=== PATIENT | female | born 1945 | race Hispanic/Latino ===

== ENCOUNTER 2018-01-08 14:02 | Outpatient (CLI) | payer OTHER | END 2018-01-08 14:03 | disposition home or self-care (01) | LOC: BICMAMMO 14:02 | PROVIDERS: ATTEND Family Medicine | DX: Z12.31 Encounter for screening mammogram for malignant neoplasm of breast (principal); N63.20 Unspecified lump in the left breast, unspecified quadrant; Z80.3 Family history of malignant neoplasm of breast | CPT/HCPCS: 77067 ==

== ENCOUNTER 2018-02-02 21:56 | Inpatient (IN) | payer OTHER ==
[~2018-02-02 21:56] MED LIST: ISOVUE-370 76%-LOCM 1 ML ONE
[2018-02-02 23:03] LABS: #Basophils 0.1 thou/uL (0.0-0.2); #Eosinphils 0.2 thou/uL (0.0-0.7); #Lymphocytes 2.5 thou/uL (1.20-3.40); #Monocytes 0.7 thou/uL (0.11-0.59); #Neutrophils 5.6 thou/uL (1.40-6.50); %Basophils 0.8 % (0.0-1.0); %Eosinophils 2.4 % (0.0-10.0); %Lymphocytes 27.1 % (21.0-51.0); %Monocytes 7.8 % (0.0-10.0); Hemoglobin 13.2 g/dL (12.0-16.0); Mean Corpuscular HGB CONC 35.9 g/dL (32.0-36.0); Mean Corpuscular Hemoglobin 34.2 pg (27.0-31.0); Mean Corpuscular Volume 95.3 fl (81.0-99.0); Mean Platelet Volume 6.1 fL (7.4-10.4); Platelet Count 217 thou/uL (130-400); RBC Distribution Width 11.9 % (11.5-14.5); Red Blood Cell (RBC) Count 3.85 mill/uL (4.20-5.40); White Blood Cell (WBC) Count 9.1 thou/uL (4.8-10.8)
[2018-02-02 23:10] LABS: PTT 25.9 SEC (22.9-36.1); Prothrombin Time 13.5 SEC (12.0-14.7)
--- NOTE | 2018-02-02 23:10 | CT ---
CT BRAIN NONCONTRAST: DATE: 02/02/2018 TIME: 10:31 p.m. COMPARISON: 02/26/2016 HISTORY: A 72-year-old female with acute ataxia, headache, dysarthria, and left-sided weakness. Dr. Walden reported the findings, by telephone, to Dr. Osorio of the emergency department, at 10:40 p.m . on 02/02/2018. FINDINGS: There is a new finding of patchy, moderately low attenuation lesion, measuring somewhat greater than 1 cm, involving the right side of the dorothy, especially the upper dorothy. There is no acute intraaxial or extraaxial hemorrhage. There are moderate chronic ischemic white matter changes of the cerebrum. The ventricles are normal in size and configuration. No extraaxial fluid collections, mass effect, or midline shift. The calvarium is intact. IMPRESSION: 1. Evidence for acute or subacute infarction of the right side of the dorothy. 2. No acute intracranial hemorrhage or mass effect. 3. Moderate chronic ischemic white matter changes. CODE BRIANNA Mukherjee POS: ANA
[2018-02-02 23:24] LABS: ALT (SGPT) 13 U/L (8-55); AST (SGOT) 15 U/L (5-34); Alkaline Phosphatase 98 U/L (40-150); Anion Gap 12 mmol/L (10-20); BUN (Urea Nitrogen) 21 mg/dL (9.8-20.1); Bilirubin, Total 0.4 mg/dL (0.2-1.2); CK (CPK) 110 U/L (29-168); Calc. Creatinine Clearance 0 mL/min (70-130); Calcium 9.1 mg/dL (7.8-10.44); Carbon Dioxide 23 mmol/L (23-31); Chloride 107 mmol/L (98-107); Estimated GFR-MDRD Greater than 90; Glucose 104 mg/dL (80-115); Potassium 3.8 mmol/L (3.5-5.1); Sodium 138 mmol/L (136-145)
[2018-02-02 23:29] LABS: CKMB 2.8 ng/mL (0-6.6); Troponin I Less than 0.010 ng/mL (< 0.028)
--- NOTE | 2018-02-02 23:30 | CT ---
CT ANGIOGRAM NECK WITH CONTRAST: CT ANGIOGRAM HEAD WITH CONTRAST: DATE: 02/02/2018 TIME: 10:43 p.m. HISTORY: A 72-year-old female with acute stroke. Dysarthria. Dysequilibrium. Left upper extremity weakness. TECHNIQUE: Following an IV contrast bolus injection of Isovue, arterial bolus chasing technique scan was perform ed from the bottom of the aortic arch to the vertex of the skull. Coronal and sagittal 3D MIP reconstructions of the head and neck. FINDINGS: There is no evidence of thrombus involving the intracranial internal carotid arteries or the M1 segme nts of the bilateral middle cerebral arteries. No evidence of high grade stenosis or occlusion invol ving these vessels or of the proximal portions of the bilateral anterior cerebral arteries, intracran ial vertebral arteries, basilar artery, posterior cerebral arteries, or the proximal aspects of the b ilateral superior cerebellar arteries. No high grade stenosis identified involving the brachiocephal ic, left subclavian, bilateral common carotid, bilateral cervical internal carotid, or bilateral cerv ical vertebral arteries. The right vertebral artery is dominant. There is mild atherosclerotic plaq ue at the bilateral proximal internal carotid arteries at the carotid bulbs. There is moderately hea vy atherosclerotic calcification of the bilateral carotid siphons. IMPRESSION: 1. Mild atherosclerosis of the proximal bilateral internal carotid arteries. 2. Moderate atherosclerosis of the bilateral carotid siphons. 3. No evidence of high grade stenosis or occlusion of the major arteries of the neck or head. ADDENDUM: This stroke alert protocol CT angiogram report of the head and neck was given verbally to Dr. Osorio of the emergency department at 11:03 p.m. on 02/02/2018. CODE CR POS: ANA
[2018-02-03] MEDS ORDERED: Ondansetron HCl/PF 4 MG/2 ML Vial IVP PRN (00:18)
[2018-02-03] MEDS ORDERED: Dextrose 5% in Water 1,000 ML IV PRN (00:18)
[2018-02-03] MEDS ORDERED: Dextrose 50% Abboject 50 ML SYRINGE SLOW IVP PRN (00:18)
[2018-02-03] MEDS ORDERED: hydrALAZINE 20 MG/ML VIAL SLOW IVP PRN (00:22)
[2018-02-03] MEDS ORDERED: HumaLOG 300 UNITS/3 ML VIAL SC PRN (00:22)
[2018-02-03] MEDS ORDERED: Aspirin 325 MG TAB ONE (00:23)
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
[2018-02-03] MEDS ORDERED: Gabapentin 300 MG CAP PO PRN (00:48)
[2018-02-03 01:06] LABS: Bilirubin Negative (Negative); Blood, Urine Negative (Negative); Clarity CLEAR (Clear); Glucose, Urine (Dipstick) Negative (Negative); Leukocyte Negative (Negative); Nitrite Negative (Negative); Protein, Urine (Dipstick) Negative (Neg-Trace); Specific Gravity, Urine 1.015 (1.002-1.036); Urobilinogen 0.2 mg/dL (0.2-1.0)
[2018-02-03 02:24] VITALS: BMI 26.1
[2018-02-03] MEDS: Acetaminophen 325 MG TAB PO PRN ×2 (02:33→20:36)
[2018-02-03] MEDS: Sodium Chloride 0.9% 1,000 ML IV SCH ×3 (02:33→22:48)
[2018-02-03 02:34] LABS: Amphetamine Not Detected (NotDetected); Barbiturates Screen Not Detected (NotDetected); Benzodiazepine Screen Not Detected (NotDetected); Cocaine Metabolite Screen Not Detected (NotDetected); Medtox Control Line Valid? VALID (VALID); Medtox Reader # READER 1; Methadone Not Detected (NotDetected); Methamphetamine Not Detected (NotDetected); Opiate Screen Not Detected (NotDetected); Oxycodone Screen Not Detected (NotDetected); Phencyclidine (PCP) Not Detected (NotDetected); THC/Cannabinoid Screen Not Detected (NotDetected); Tricyclic Screen Not Detected (NotDetected)
[2018-02-03 05:21] LABS: #Eosinphils 0.3 thou/uL (0.0-0.7); #Lymphocytes 2.5 thou/uL (1.20-3.40); #Monocytes 0.7 thou/uL (0.11-0.59); #Neutrophils 4.6 thou/uL (1.40-6.50); %Basophils 0.5 % (0.0-1.0); %Eosinophils 3.3 % (0.0-10.0); %Lymphocytes 30.7 % (21.0-51.0); %Monocytes 8.3 % (0.0-10.0); %Neutrophils 57.2 % (42.0-75.0); Hemoglobin 12.2 g/dL (12.0-16.0); Mean Corpuscular HGB CONC 35.4 g/dL (32.0-36.0); Mean Corpuscular Hemoglobin 33.7 pg (27.0-31.0); Mean Corpuscular Volume 95.3 fl (81.0-99.0); Mean Platelet Volume 6.1 fL (7.4-10.4); Platelet Count 190 thou/uL (130-400); RBC Distribution Width 11.9 % (11.5-14.5); Red Blood Cell (RBC) Count 3.61 mill/uL (4.20-5.40)
[2018-02-03 05:38] LABS: Hemoglobin A1c 4.9 % (4.0-6.0)
[2018-02-03 05:40] LABS: Anion Gap 8 mmol/L (10-20); BUN (Urea Nitrogen) 19 mg/dL (9.8-20.1); Calc. Creatinine Clearance 84 mL/min (70-130); Calcium 8.8 mg/dL (7.8-10.44); Carbon Dioxide 28 mmol/L (23-31); Cardiac Risk 4.1 (Less than 4.5); Chloride 108 mmol/L (98-107); Cholesterol 195 mg/dl (< 200 Desired); Estimated GFR-MDRD Greater than 90; Glucose 111 mg/dL (80-115); HDL Cholesterol 47 mg/dL (>60 Neg Risk); LDL Cholesterol, Calculated 135 mg/dL; Potassium 3.6 mmol/L (3.5-5.1); Sodium 140 mmol/L (136-145); Triglycerides 64 mg/dL (Less than 150)
[2018-02-03] MEDS: Famotidine 20 MG TAB PO SCH ×2 (08:16→20:36)
[2018-02-03] MEDS: Enoxaparin Sodium 40 MG/0.4 ML SYRINGE SC SCH (08:16)
[2018-02-03] MEDS: metFORMIN 500 MG TAB PO SCH ×2 (08:16→17:41)
[2018-02-03] MEDS ORDERED: Aspirin 81 mg Enteric Coated Tablet PO SCH (09:00)
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
--- NOTE | 2018-02-03 10:38 | MRI ---
MRI BRAIN WITHOUT CONTRAST: DATE: 02/03/18. COMPARISON: None. HISTORY: Acute ataxia, left-sided weakness, headache, and dysarthria. TECHNIQUE: Multiplanar multisequence MR imaging of the brain obtained without contrast. FINDINGS: He diffusion weighted imaging demonstrates no evidence for acute infarction. The axial gradient echo imaging demonstrates no evidence for intracranial hemorrhage. Multiple foci of periventricular deep and subcortical white matter T2 and FLAIR hyperintensity noted, evidence of small-vessel disease, not significantly changed when compared to the 02/26/16 exam. Arterial flow voids at axial level of the skull base appear grossly unremarkable on the T2 weighted i maging. Regional bone marrow signal intensity appears grossly unremarkable. No midline shift or mas s effect. IMPRESSION: Chronic findings as described above. No evidence for intracranial hemorrhage or acute infarction. POS: ANA
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
[2018-02-03] MEDS ORDERED: Ibuprofen 800 MG TAB PO PRN (17:13)
[2018-02-03] MEDS ORDERED: Lisinopril 10 MG TAB PO SCH (19:15)
[2018-02-03] MEDS ORDERED: Atorvastatin Calcium 40 MG TAB PO SCH (21:00)
[2018-02-03] MEDS ORDERED: Ibuprofen 800 MG TAB PO SCH (21:00)
[2018-02-04 05:24] LABS: #Eosinphils 0.3 thou/uL (0.0-0.7); #Lymphocytes 1.8 thou/uL (1.20-3.40); #Monocytes 0.6 thou/uL (0.11-0.59); #Neutrophils 4.9 thou/uL (1.40-6.50); %Basophils 0.5 % (0.0-1.0); %Eosinophils 4.5 % (0.0-10.0); %Lymphocytes 23.6 % (21.0-51.0); %Monocytes 7.7 % (0.0-10.0); %Neutrophils 63.6 % (42.0-75.0); Hemoglobin 12.9 g/dL (12.0-16.0); Mean Corpuscular HGB CONC 35.3 g/dL (32.0-36.0); Mean Corpuscular Hemoglobin 33.4 pg (27.0-31.0); Mean Corpuscular Volume 94.5 fL (78.0-98.0); Mean Platelet Volume 6.3 fL (7.4-10.4); Platelet Count 220 thou/uL (130-400); RBC Distribution Width 11.9 % (11.5-14.5); Red Blood Cell (RBC) Count 3.87 mill/uL (4.20-5.40); White Blood Cell (WBC) Count 7.7 thou/uL (4.8-10.8)
[2018-02-04 05:54] LABS: Anion Gap 12 mmol/L (10-20); BUN (Urea Nitrogen) 21 mg/dL (9.8-20.1); Calc. Creatinine Clearance 79 mL/min (70-130); Calcium 9.2 mg/dL (7.8-10.44); Carbon Dioxide 24 mmol/L (23-31); Chloride 109 mmol/L (98-107); Estimated GFR-MDRD Greater than 90; Glucose 101 mg/dL (80-115); Potassium 3.8 mmol/L (3.5-5.1); Sodium 141 mmol/L (136-145)
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
[2018-02-04] MEDS: Acetaminophen 325 MG TAB PO PRN (08:15)
[2018-02-04] MEDS: Famotidine 20 MG TAB PO SCH (08:15)
[2018-02-04] MEDS: metFORMIN 500 MG TAB PO SCH (08:16)
[2018-02-04] MEDS: Sodium Chloride 0.9% 1,000 ML IV SCH (08:18)
[2018-02-04 08:21] VITALS: TEMP 97.5
[2018-02-04] MEDS ORDERED: Aspirin 81 mg Enteric Coated Tablet PO SCH (09:00)
[2018-02-04] MEDS ORDERED: Lisinopril 20 MG TAB PO SCH (09:00)
[2018-02-04 09:47] VITALS: BP 134/72
[2018-02-04] MEDS: Enoxaparin Sodium 40 MG/0.4 ML SYRINGE SC SCH (10:11)
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
== END 2018-02-04 11:25 | disposition home or self-care (01) | DRG 69 ==
LOC: ERS 21:56 → 2SE 02-03 00:11
PROVIDERS: ADMIT Family Medicine; ATTEND Family Medicine
DX: G45.9 Transient cerebral ischemic attack, unspecified (principal); G81.94 Hemiplegia, unspecified affecting left nondominant side; Z79.84 Long term (current) use of oral hypoglycemic drugs; I10 Essential (primary) hypertension; E78.5 Hyperlipidemia, unspecified; R07.81 Pleurodynia; Y08.89XA Assault by other specified means, initial encounter; R47.1 Dysarthria and anarthria; S00.03XA Contusion of scalp, initial encounter; R40.2412 Glasgow coma scale score 13-15, at arrival to emergency department; I16.0 Hypertensive urgency; E11.42 Type 2 diabetes mellitus with diabetic polyneuropathy; Z79.82 Long term (current) use of aspirin; W18.39XA Other fall on same level, initial encounter
CPT/HCPCS: 0042T; 36415; 36416; 70450; 70496; 70498; 70551; 71045; 72128; 80048; 80053; 80061; 80306; 81003; 82553; 83036; 84484; 85025; 85610; 85730; 93005; 93306; 96374; A4216; G8978-GP-CK; G8979-GP-CK; G8980-GP-CK; G8987-GO-CI; G8988-GO-CI; G8989-GO-CI; G8996-GN-CH; G8997-GN-CH; G8998-GN-CH; J1650; J2270

== ENCOUNTER 2018-03-09 13:02 | Outpatient (CLI) | payer OTHER | END 2018-03-09 13:03 | disposition home or self-care (01) | LOC: BICMAMMO 13:02 | PROVIDERS: ATTEND Student in an Organized Health Care Education/Training Program | DX: Z13.820 Encounter for screening for osteoporosis (principal); Z78.0 Asymptomatic menopausal state; M85.89 Other specified disorders of bone density and structure, multiple sites | CPT/HCPCS: 77080 ==

== ENCOUNTER 2019-06-06 12:06 | Emergency (ER) | payer OTHER ==
--- NOTE | 2019-06-06 13:11 | CT ---
CT BRAIN NONCONTRAST: Fall, acute. DATE: 06/06/2019 HISTORY: 73-year-old female with posttraumatic headache and dizziness after fall. FINDINGS: There is no evidence of acute intra-axial or extra-axial hemorrhage. There is no midline shift or any other mass effect. There is no extra-axial fluid collection. There is no evidence of obstructive hydrocephalus. Calvarium is intact. IMPRESSION: No acute intracranial findings.
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
[2019-06-06] MEDS ORDERED: Ketorolac Tromethamine 30 MG/ML VIAL ONE (13:36)
== END 2019-06-06 13:45 | disposition home or self-care (01) ==
LOC: ERS 12:06
DX: S01.01XA Laceration without foreign body of scalp, initial encounter (principal); E11.9 Type 2 diabetes mellitus without complications; E78.5 Hyperlipidemia, unspecified; I10 Essential (primary) hypertension; Z79.899 Other long term (current) drug therapy; Z79.84 Long term (current) use of oral hypoglycemic drugs; W18.30XA Fall on same level, unspecified, initial encounter
CPT/HCPCS: 36416; 70450; 72125; 96372; J1885

== ENCOUNTER 2021-02-06 13:26 | Emergency (ER) | payer OTHER ==
[2021-02-06] MEDS ORDERED: Dexamethasone 4 mg/ml Vial ONE (15:12)
[2021-02-06] MEDS ORDERED: diphenhydrAMINE 25 MG CAP ONE (15:12)
== END 2021-02-06 16:57 | disposition home or self-care (01) ==
LOC: ERS 13:26
DX: T78.3XXA Angioneurotic edema, initial encounter (principal); Z79.899 Other long term (current) drug therapy; Z79.84 Long term (current) use of oral hypoglycemic drugs; Z79.82 Long term (current) use of aspirin; E11.9 Type 2 diabetes mellitus without complications; E78.5 Hyperlipidemia, unspecified; I10 Essential (primary) hypertension
CPT/HCPCS: 99283; J1100; Q0163

== ENCOUNTER 2022-07-04 15:22 | Emergency (ER) | payer OTHER ==
[2022-07-04] MEDS ORDERED: Morphine 4 MG/ML VIAL ONE (16:55)
[2022-07-04] MEDS ORDERED: Ondansetron PF 4 MG/2 ML Vial ONE (16:55)
== END 2022-07-04 18:25 | disposition home or self-care (01) ==
LOC: ERS 15:22
DX: S09.90XA Unspecified injury of head, initial encounter (principal); M25.552 Pain in left hip; E11.9 Type 2 diabetes mellitus without complications; E78.5 Hyperlipidemia, unspecified; I10 Essential (primary) hypertension; Z79.899 Other long term (current) drug therapy; W01.10XA Fall on same level from slipping, tripping and stumbling with subsequent striking against unspecified object, initial encounter
CPT/HCPCS: 70450; 72125; 96374; 96375; J2270; J2405

== ENCOUNTER 2022-07-24 10:38 | Inpatient (IN) | payer OTHER ==
[2022-07-24 11:05] LABS: #Eosinphils 0.3 thou/uL (0.0-0.7); #Lymphocytes 1.8 thou/uL (1.20-3.40); #Monocytes 0.4 thou/uL (0.11-0.59); #Neutrophils 4.8 thou/uL (1.40-6.50); %Basophils 0.3 % (0.0-1.0); %Eosinophils 3.7 % (0.0-10.0); %Lymphocytes 24.3 % (21.0-51.0); %Monocytes 5.2 % (0.0-10.0); %Neutrophils 66.6 % (42.0-75.0); Hemoglobin 13.9 g/dL (12.0-16.0); Mean Corpuscular HGB CONC 33.2 g/dL (32.0-36.0); Mean Corpuscular Volume 96.6 fl (78.0-98.0); Mean Platelet Volume 6.8 fL (7.4-10.4); Platelet Count 241 10x3/uL (130-400); RBC Distribution Width 12.3 % (11.5-14.5); Red Blood Cell (RBC) Count 4.35 mill/uL (4.20-5.40); White Blood Cell (WBC) Count 7.2 10x3/uL (4.8-10.8)
[2022-07-24] MEDS ORDERED: Iopamidol-370 76% 500 ML 1 ML ONE (11:09)
[2022-07-24 11:19] LABS: PTT 26.5 sec (22.9-36.1); Prothrombin Time 13.5 sec (12.0-14.7)
[2022-07-24 11:23] LABS: ALT (SGPT) 12 U/L (8-55); AST (SGOT) 16 U/L (5-34); Albumin 4.2 g/dL (3.4-4.8); Alkaline Phosphatase 112 U/L (40-110); Anion Gap 14 mmol/L (10-20); BUN (Urea Nitrogen) 15 mg/dL (9.8-20.1); Bilirubin, Total 0.5 mg/dL (0.2-1.2); Calc. Creatinine Clearance 0 mL/min (70-130); Calcium 9.5 mg/dL (7.8-10.44); Carbon Dioxide 26 mmol/L (23-31); Chloride 104 mmol/L (98-107); Estimated GFR 85; Globulin 3.1 g/dL (2.4-3.5); Glucose 88 mg/dL (83-110); Potassium 3.2 mmol/L (3.5-5.1); Protein, Total 7.3 g/dL (5.8-8.1); Sodium 141 mmol/L (136-145)
[2022-07-24] MEDS ORDERED: Acetaminophen 500 MG TAB ONE (11:58)
[2022-07-24] MEDS ORDERED: hydrALAZINE 20 MG/ML VIAL ONE (11:58)
[2022-07-24] MEDS ORDERED: Aspirin Chewable 81 MG TAB ONE (12:05)
[2022-07-24] MEDS ORDERED: Dextrose 50% Abboject 50 ML SYRINGE SLOW IVP PRN (12:43)
[2022-07-24] MEDS ORDERED: HumaLOG 300 UNITS/3 ML VIAL SC PRN (12:43)
[2022-07-24] MEDS ORDERED: Dextrose 5% in Water 1,000 ML IV PRN (12:43)
[2022-07-24] MEDS ORDERED: Potassium Chloride 40 MEQ in Premix Bag 1 BAG IVPB SCH (12:45)
[2022-07-24] MEDS ORDERED: Metoclopramide HCl 10 MG/2 ML VIAL IVP SCH (12:45)
[2022-07-24] MEDS ORDERED: Ketorolac Tromethamine 30 MG/ML VIAL IVP SCH (12:45)
[2022-07-24] MEDS ORDERED: Sodium Chloride 0.9% 500 ML IV SCH (13:00)
[2022-07-24 13:33] LABS: SARS-CoV-2 NAA Rapid Test Not Detected (NotDetected)
[2022-07-24] MEDS ORDERED: Ketorolac Tromethamine 30 MG/ML VIAL ONE (13:55)
[2022-07-24] MEDS ORDERED: Potassium Chloride 20 MEQ/100 ML PREMIX BAG ONE (13:55)
[2022-07-24] MEDS ORDERED: Metoclopramide HCl 10 MG/2 ML VIAL ONE (13:55)
[2022-07-24] MEDS: Potassium Chloride 20 MEQ in Premix Bag 1 BAG IVPB SCH ×2 (14:21→17:25)
[2022-07-24] MEDS: Gabapentin 300 MG CAP PO SCH ×2 (15:24→21:46)
[2022-07-24 16:53] VITALS: BMI 24.6
[2022-07-24] MEDS ORDERED: hydrALAZINE 20 MG/ML VIAL SLOW IVP PRN (20:08)
[2022-07-24] MEDS ORDERED: Atorvastatin Calcium 40 MG TAB PO SCH (21:00)
[2022-07-24] MEDS: Topiramate 25 MG TAB PO SCH (21:46)
[2022-07-25 05:59] LABS: Hemoglobin A1c 5.5 % (4.0-6.0)
[2022-07-25 06:01] LABS: #Eosinphils 0.4 thou/uL (0.0-0.7); #Monocytes 0.6 thou/uL (0.11-0.59); #Neutrophils 6.6 thou/uL (1.40-6.50); %Basophils 0.5 % (0.0-1.0); %Eosinophils 3.8 % (0.0-10.0); %Lymphocytes 21.1 % (21.0-51.0); %Monocytes 5.8 % (0.0-10.0); %Neutrophils 68.8 % (42.0-75.0); Hemoglobin 13.4 g/dL (12.0-16.0); Mean Corpuscular Hemoglobin 33.2 pg (27.0-31.0); Mean Corpuscular Volume 97.5 fl (78.0-98.0); Platelet Count 229 10x3/uL (130-400); RBC Distribution Width 12.4 % (11.5-14.5); Red Blood Cell (RBC) Count 4.03 mill/uL (4.20-5.40); White Blood Cell (WBC) Count 9.6 10x3/uL (4.8-10.8)
[2022-07-25 06:15] LABS: Cardiac Risk 3.2 (Less than 4.5); Cholesterol 117 mg/dl (< 200 Desired); HDL Cholesterol 37 mg/dL (>60 Neg Risk); LDL Cholesterol, Calculated 57 mg/dL; Phosphorus 3.6 mg/dL (2.3-4.7); Triglycerides 115 mg/dL (Less than 150)
[2022-07-25 06:17] LABS: Anion Gap 10 mmol/L (10-20); BUN (Urea Nitrogen) 20 mg/dL (9.8-20.1); Calc. Creatinine Clearance 59 mL/min (70-130); Calcium 9.6 mg/dL (7.8-10.44); Carbon Dioxide 27 mmol/L (23-31); Chloride 106 mmol/L (98-107); Estimated GFR 86; Glucose 128 mg/dL (83-110); Magnesium 1.6 mg/dL (1.6-2.6); Sodium 139 mmol/L (136-145)
[2022-07-25] MEDS ORDERED: Aspirin 81 mg Enteric Coated Tablet PO SCH (09:00)
[2022-07-25] MEDS ORDERED: Clopidogrel Bisulfate 75 MG TAB PO SCH (09:00)
[2022-07-25] MEDS ORDERED: Cholecalciferol 1,000 UNITS (25 MCG) TAB PO SCH (09:00)
[2022-07-25] MEDS ORDERED: Hydrochlorothiazide 25 MG TAB PO SCH (09:00)
[2022-07-25] MEDS ORDERED: Enoxaparin Sodium 30 MG/0.3 ML SYRINGE SC SCH (09:00)
[2022-07-25] MEDS: Gabapentin 300 MG CAP PO SCH (10:07)
[2022-07-25] MEDS: Topiramate 25 MG TAB PO SCH (10:08)
[2022-07-25 11:47] VITALS: BP 135/63; TEMP 96.7
== END 2022-07-25 13:41 | disposition home or self-care (01) | DRG 103 ==
LOC: SUATTDRO 10:38 → ERS 10:38 → ERHOLD 12:02 → NEURO 16:40
PROVIDERS: ADMIT Family Medicine; ATTEND Family Medicine
DX: G43.109 Migraine with aura, not intractable, without status migrainosus (principal); G45.9 Transient cerebral ischemic attack, unspecified; Z20.822 Contact with and (suspected) exposure to COVID-19; I10 Essential (primary) hypertension; E78.5 Hyperlipidemia, unspecified; M81.0 Age-related osteoporosis without current pathological fracture; E87.6 Hypokalemia; T50.2X5A Adverse effect of carbonic-anhydrase inhibitors, benzothiadiazides and other diuretics, initial encounter; Z86.73 Personal history of transient ischemic attack (TIA), and cerebral infarction without residual deficits; Z79.899 Other long term (current) drug therapy; Z79.82 Long term (current) use of aspirin; Z79.1 Long term (current) use of non-steroidal anti-inflammatories (NSAID); Z90.710 Acquired absence of both cervix and uterus
CPT/HCPCS: 36415; 36416; 70450; 70496; 70498; 70551; 80048; 80053; 80061; 83036; 83735; 83880; 84100; 84443; 84484; 85025; 85610; 85730; 93005; 96374; J0360; J1650; J1885; J2765; J3480; J7030; Q9967; U0002

== ENCOUNTER 2022-09-23 13:58 | Emergency (ER) | payer OTHER | END 2022-09-23 15:00 | disposition home or self-care (01) | LOC: ERS 13:58 | DX: J06.9 Acute upper respiratory infection, unspecified (principal); E11.9 Type 2 diabetes mellitus without complications; E78.5 Hyperlipidemia, unspecified; I10 Essential (primary) hypertension; Z79.82 Long term (current) use of aspirin; Z79.899 Other long term (current) drug therapy; Z79.84 Long term (current) use of oral hypoglycemic drugs | CPT/HCPCS: 99283 ==

== ENCOUNTER 2022-11-08 15:03 | Outpatient (CLI) | payer OTHER | END 2022-11-08 15:04 | disposition home or self-care (01) | LOC: BICRAD 15:03 | PROVIDERS: ATTEND Nurse Practitioner Family | DX: M47.816 Spondylosis without myelopathy or radiculopathy, lumbar region (principal); W19.XXXA Unspecified fall, initial encounter; M41.9 Scoliosis, unspecified | CPT/HCPCS: 72100 ==

== ENCOUNTER 2022-11-18 09:25 | Outpatient (CLI) | payer OTHER | END 2022-11-18 09:26 | disposition home or self-care (01) | LOC: CT 09:25 | PROVIDERS: ATTEND Nurse Practitioner Family | DX: S09.90XA Unspecified injury of head, initial encounter (principal); W19.XXXA Unspecified fall, initial encounter | CPT/HCPCS: 70450 ==

== ENCOUNTER 2022-12-12 10:00 | Outpatient (CLI) | payer OTHER | END 2022-12-12 10:01 | disposition home or self-care (01) | LOC: RAD 10:00 | PROVIDERS: ATTEND Student in an Organized Health Care Education/Training Program | DX: M54.2 Cervicalgia (principal); M54.16 Radiculopathy, lumbar region; M81.0 Age-related osteoporosis without current pathological fracture; M47.812 Spondylosis without myelopathy or radiculopathy, cervical region; M47.817 Spondylosis without myelopathy or radiculopathy, lumbosacral region | CPT/HCPCS: 72040; 72100 ==